=== PATIENT | female | born 1930 | race Caucasian/White ===

== ENCOUNTER 2016-11-09 16:00 | Inpatient (IN) | payer MEDICARE, OTHER ==
[2016-11-13 07:03] LABS: HCT 27.5 % (37.0-47.0); HGB 8.8 g/dl (12.5-16.0); MCH 31.7 pg (25.0-31.0); MCV 98.9 fL (78.0-100.0); RBC 2.78 M/uL (4.20-5.40); RDW 14.6 % (11.5-14.0); WBC 8.5 K/uL (4.0-10.5)
[2016-11-13 07:27] LABS: ALBUMIN 3.4 g/dL (3.4-4.8); BILIRUBIN - TOTAL 0.6 mg/dL (0.1-1.0); GLOBULIN (CALCULATION) 2.8 g/dL (2.2-4.2); POTASSIUM 3.9 mmol/L (3.5-5.1); TOTAL PROTEIN 6.2 g/dL (6.4-8.3)
[2016-11-13 07:41] LABS: CKMB 4.74 ng/mL (0.97-4.94); TROPONIN T < 0.010 ng/mL
--- NOTE | 2016-11-13 07:44 | NUR ---
615 AM PT CALLED OUT STATED SHE WAS NAUSEATED. CALL TO DR. RODRIGUEZ FOR HI UPON ARRIVAL TO PT ROOM PT STATES SHE IS HAVING CHEST DISCOMFORT. STATEMENTS VAGUE SAYS IT MIGHT BE HERE TRIPLE LUMEN IN HER NECK. RUBBING UPPER CHEST - WHEN ASKED TO GIVEN DETAILS STATES HEAVINESS. PER RAPID RESPONSE STAT EKG OBTAINED. LAB WORK ORDERED TO INCLUDE CARDIAC ENYZMES. VITALS MONITORED THROUGHOUT PROCESS 117/63, HEART RATE 88-94 SAT 93-97%, RESPIRATIONS 16-18. EKG FAXED TO DR RODRIGUEZ WITH COPY OF PREVIOUS EXAM FOR COMPARISON. DR. RODRIGUEZ REPORTS NO SIGNIFICANT CHANGES. CONTINUE TO MONITOR.
--- NOTE | 2016-11-20 11:27 | NUR ---
PT. INVITED TO CARE TEAM MTG. HER DAUGHTER MYRA HARP WAS ON A CONFERENCE CALL. PER MYRA PT. WILL HAVE 22/04 CAREGIVERS WHEN SHE D/C HOME. PT. WILL HAVE [facility] FOR PT/OT AND NURSING ASSESSMENT. ADVISED PT. AND DAUGHTER WE WOULD MEET AGAIN NEXT SATURDAY.
--- NOTE | 2016-11-20 12:18 | NUR ---
DEMETRIUS REMOVED FROM KNEE INCISION. PT JERKING LEG STATING "I NEED A DOUBLE DOSE OF PAIN AND CRAZY PILLS" DRESSING COVERING INCISION. POLAR PACK IN USE
--- NOTE | 2016-11-26 05:03 | NUR ---
PATIENT UP TO RESTROOM THIS TIME, COMPLAINS OF VAGUE CHEST DISCOMFORT. VITALS OBTAINED BP 172/77 HEART RATE 83, RESP 16, SAT 97. TEMP 97.1. RESTING EYES NO SIGNS OF DISTRESS OR DISCOMFORT. CLOSED DURING VITALS. WHEN AGAIN QUESTIONED ABOUT CHEST PAIN PATIENT PT DID NOT RESPOND TO QUESTIONS, REPEATED TIMES 3, PT THEN BEGAN PANTING BREATHING AND STATES IT FEELS LIKE IT IS SWELLED UP. AM BP MEDS OF NORVASC 2.5 AND LOSARTAN 25MG GIVEN AT THIS TIME WITH MYLANTA AND PERCOCET 1 TAB FOR KNEE PAIN.
--- NOTE | 2016-11-27 16:53 | NUR ---
TC CONFERENCE WITH PT. DAUGHTER, MYRA HARP. ADVISED MYRA THAT PT. WOULD BE DISCHARDING ON 11/30/16. PT. REQUESTS [facility] FOR PT/OT AND NURSING ASSESSMENT.
[2016-11-28 04:50] LABS: MCH 31.9 pg (25.0-31.0); MCHC 32.3 g/dL (32.0-36.0); MPV 9.8 fL (6.0-9.5); RBC 3.13 M/uL (4.20-5.40); RDW 14.3 % (11.5-14.0); WBC 7.3 K/uL (4.0-10.5)
--- NOTE | 2016-11-28 14:01 | NUR ---
DAUGHTER APPROACHED NURSE IN THE HALLWAY AND ASKED ABOUT A LIST OF DISCHARGE MEDS SO SHE CAN FILL THE PATIENT'S "PILL BOX". THE NURSE EXPLAINED THAT A FULL LIST OF D/C MEDS WOULD BE PROVIDED ON SATURDAY SHE STATED "THAT'S TOO LATE". THE NURSE EXPLAINED TO THE DAUGHTER THAT MANY THINGS COULD CHANGE BETWEEN NOW AND SATURDAY AND THAT THE NURSE DID NOT FEEL COMFORTABLE GIVING A LIST NOW BECAUSE IT WOULD NOT BE COMPLETE SHE STATED "WELL I DON'T KNOW WHAT COULD CHANGE" AND SHE KEPT REPEATING THAT PHRASE OVER AND OVER THE NURSE TRIED TO EXPLAIN THAT IT WAS POSSIBLE FOR MANY THINGS TO CHANGE. THE NURSE THEN TOLD THE DAUGHTER THAT THE ORDERS COULD POSSIBLY BE READY ON SATURDAY AND SHE COULD HAVE IT SHE STATED "THAT'S TOO LATE" AND WALKED AWAY FROM THE NURSE. THIS NURSE EXPLAINED THE SITUATION TO TREVOR ALLEN.
--- NOTE | 2016-11-30 11:13 | NUR ---
PT. D/C HOME THIS DATE. PT. TO HAVE 22/04 CAREGIVERS. PT. HAS A ROLLING WALKER AND 3 IN 1. PT. REQUESTED [facility] FOR PT/OT AND NURSING ASSESSMENT.PT. XARELTO THERAPY IS COMPLETE. D/C NOTICE AND QUESTIONNAIRE GIVEN.
[2016-11-30] MEDS ORDERED: COLACE100 MG PO (13:37)
[2016-11-30] MEDS ORDERED: ACETAMINOPHEN325 MG PO (13:37)
[2016-11-30] MEDS ORDERED: BENADRYL25 MG PO (13:38)
[2016-11-30] MEDS ORDERED: FEOSOL325 MG PO (13:38)
[2016-11-30] MEDS ORDERED: ILOTYCIN1 GM OU (13:39)
[2016-11-30] MEDS ORDERED: XALATAN2.5 ML OU (13:39)
[2016-11-30] MEDS ORDERED: REQUIP2 MG PO (13:40)
[2016-11-30] MEDS ORDERED: BUMEX1 MG PO (13:40)
[2016-11-30] MEDS ORDERED: REQUIP1 MG PO (13:40)
[2016-11-30] MEDS ORDERED: NORVASC2.5 MG PO (13:41)
[2016-11-30] MEDS ORDERED: COZAAR 25MG TAB25 MG PO (13:41)
[2016-11-30] MEDS ORDERED: ZOVIRAX5 GM TOP (13:43)
[2016-11-30] MEDS ORDERED: PAXIL10 MG PO (13:44)
[2016-11-30] MEDS ORDERED: LIPITOR40 MG PO (13:44)
[2016-11-30] MEDS ORDERED: PLAVIX75 MG PO (13:44)
[2016-11-30] MEDS ORDERED: PROTONIX 40MG T40 MG PO (13:44)
[2016-11-30] MEDS ORDERED: CLARITIN10 MG PO (13:45)
[2016-11-30] MEDS ORDERED: K-DUR20 MEQ PO (13:45)
== END 2016-11-30 11:57 | disposition home health service (06) | DRG 560 ==
LOC: FSNU 16:00
PROVIDERS: Nurse Practitioner Adult Health; ADMIT Internal Medicine
DX: Z47.1 Aftercare following joint replacement surgery (principal); I50.42 Chronic combined systolic (congestive) and diastolic (congestive) heart failure; I11.0 Hypertensive heart disease with heart failure; I27.2 Other secondary pulmonary hypertension; D62 Acute posthemorrhagic anemia; Z96.651 Presence of right artificial knee joint; R00.1 Bradycardia, unspecified; I25.10 Atherosclerotic heart disease of native coronary artery without angina pectoris; F41.9 Anxiety disorder, unspecified; R07.9 Chest pain, unspecified; I45.10 Unspecified right bundle-branch block
CPT/HCPCS: 36415; 80053; 82550; 82553; 84484; 93005; 97110; 97116; 97162; 97165; 97530; 97530-GP; 97535; 97537; J2916

== ENCOUNTER 2021-03-29 20:12 | Day surgery (SDCO) | payer MEDICARE, OTHER ==
[~2021-03-29] VITALS: Ht 162.6 cm; Wt 60.4 kg
[~2021-03-29 20:12] MED LIST: ACETAMINOPHEN325 MG PO; ALLOPURINOL300 MG PO; BACTRIM DS TAB1 EACH PO; BENADRYL25 MG PO; BETIMOL5 ML EYEBOTH; BUMEX1 MG PO; CLARITIN10 MG PO; COLACE100 MG PO; COQ-10100 MG PO; COZAAR 25MG TAB25 MG PO; CRESTOR10 MG PO; D3-200050 MCG PO; FEOSOL325 MG PO; FOLIC ACID1 MG PO; ICAR-C PLUS TA1 EACH PO; ILOTYCIN1 GM OU; K-DUR20 MEQ PO; LIPITOR40 MG PO; LOPRESSOR25 MG PO; MAG-OXIDE 400M400 MG PO; MEDROL 4MG DOSEP4 MG PO; NORCO 5-325 TA1 EACH PO; NORVASC2.5 MG PO; PAXIL10 MG PO; PEPCID AC20 MG PO; PLAVIX75 MG PO; PROTONIX 40MG T40 MG PO; REQUIP1 MG PO; TIMOPTIC 0.5%1 EACH AU; TRAMADOL HCL50 MG PO; XALATAN2.5 ML OU; ZANTAC150 MG PO; ZOFRAN8 MG PO; ZOVIRAX5 GM TOP; ZYRTEC10 MG PO
[2021-03-29 21:52] LABS: BASOPHIL 0.8 % (0-2); EOSINOPHIL 3.5 % (0-7); HCT 22.6 % (37.0-47.0); LYMPHOCYTE 24.3 % (15-48); MCH 32.1 pg (25.0-31.0); MCV 103.7 fL (78.0-100.0); MONOCYTE 8.3 % (0-12); MPV 10.7 fL (6.0-9.5); NEUTROPHIL 62.6 % (41-80); NRBC 0; PLT 400 K/uL (150-400); RBC 2.18 M/uL (4.20-5.40); RDW 17.1 % (11.5-14.0); WBC 6.4 K/uL (4.0-10.5)
[2021-03-29 22:04] LABS: ALBUMIN 3.1 g/dL (3.4-5.0); BILIRUBIN - TOTAL 0.2 mg/dL (0.2-1.0); BUN/CREAT RATIO (CALC) 21.3 RATIO; CREATININE 1.22 mg/dL (0.51-0.95); GLOBULIN (CALCULATION) 3.9 g/dL
[2021-03-29 22:26] LABS: INR 1.09 (0.9-1.2); PROTHROMBIN TIME 13.4 SECONDS (11.4-13.6); PTT 27.5 SECONDS (22.2-34.7)
[2021-03-29 22:27] LABS: D-DIMER 1.01 ug/mLFEU (0.00-0.41)
[2021-03-29 23:10] LABS: RETICULOCYTE COUNT 2.1 % (1.0-2.0)
[2021-03-29 23:37] LABS: IRON % SATURATION 13.1 %SAT (20-50)
[2021-03-29 23:55] LABS: FOLIC ACID (SERUM) 11.6 ng/mL (8.6-58.9)
[2021-03-30 01:27] LABS: MAGNESIUM 2.5 mg/dL (1.8-2.4); PHOSPHORUS 3.9 mg/dL (2.6-4.7)
[2021-03-30 10:21] LABS: BASOPHIL 1.2 % (0-2); EOSINOPHIL 3.6 % (0-7); HCT 34.2 % (37.0-47.0); LYMPHOCYTE 17.8 % (15-48); MONOCYTE 8.2 % (0-12); MPV 10.7 fL (6.0-9.5); NEUTROPHIL 68.8 % (41-80); NRBC 0; PLT 350 K/uL (150-400); RBC 3.64 M/uL (4.20-5.40); RDW 18.6 % (11.5-14.0); WBC 5.6 K/uL (4.0-10.5)
[2021-03-30 10:22] LABS: HGB 11.3 g/dl (12.5-16.0)
[2021-03-30 10:41] LABS: ALBUMIN 3.3 g/dL (3.4-5.0); BILIRUBIN - TOTAL 0.6 mg/dL (0.2-1.0); BUN/CREAT RATIO (CALC) 18.9 RATIO; CREATININE 1.06 mg/dL (0.51-0.95); GLOBULIN (CALCULATION) 3.6 g/dL; POTASSIUM 4.3 mmol/L (3.5-5.1); TOTAL PROTEIN 6.9 g/dL (6.4-8.2)
[2021-03-30 10:56] LABS: CKMB 2.1 ng/mL (0.0-3.6)
[2021-03-31 06:15] LABS: EOSINOPHIL 4.5 % (0-7); HCT 32.1 % (37.0-47.0); HGB 10.6 g/dl (12.5-16.0); LYMPHOCYTE 21.2 % (15-48); MCH 30.6 pg (25.0-31.0); MCV 92.8 fL (78.0-100.0); MONOCYTE 9.3 % (0-12); MPV 11.1 fL (6.0-9.5); NEUTROPHIL 63.4 % (41-80); NRBC 0; PLT 336 K/uL (150-400); RBC 3.46 M/uL (4.20-5.40); RDW 18.6 % (11.5-14.0); WBC 6.2 K/uL (4.0-10.5)
[2021-03-31 06:33] LABS: BUN/CREAT RATIO (CALC) 21.1 RATIO; CREATININE 1.14 mg/dL (0.51-0.95); POTASSIUM 4.3 mmol/L (3.5-5.1)
--- NOTE | 2021-03-31 12:05 | NUR ---
TC TO DAUGHTER MYRA [phone] AND PAYMA. BOTH ADVISED THAT THEY WANT THE HH THEIR MOTHER HAD THE LAST TIME SHE LEFT [place]. LOOKED THROUGH PT RECORD FOR THE HH. IT WAS [facility]. ADVISED DAUGHTER. SENT REFERRAL THROUGH [facility]. WELL FAXED TO JANEEN AT [facility]. PT. IS SCHEDULED TO D/C HOME ON 03/31/21.
== END 2021-03-31 13:17 | disposition home health service (06) ==
LOC: FER 20:12 → FMS 03-30 00:29
PROVIDERS: Emergency Medicine; Nurse Practitioner; ADMIT Internal Medicine
DX: I13.0 Hypertensive heart and chronic kidney disease with heart failure and stage 1 through stage 4 chronic kidney disease, or unspecified chronic kidney disease (principal); I50.43 Acute on chronic combined systolic (congestive) and diastolic (congestive) heart failure; N18.30 Chronic kidney disease, stage 3 unspecified; M48.55XA Collapsed vertebra, not elsewhere classified, thoracolumbar region, initial encounter for fracture; R07.89 Other chest pain; R04.0 Epistaxis; Z88.0 Allergy status to penicillin; Z88.5 Allergy status to narcotic agent; I25.2 Old myocardial infarction; Z95.5 Presence of coronary angioplasty implant and graft; K21.9 Gastro-esophageal reflux disease without esophagitis; Z79.899 Other long term (current) drug therapy; Z96.653 Presence of artificial knee joint, bilateral; Z90.49 Acquired absence of other specified parts of digestive tract; Z20.822 Contact with and (suspected) exposure to COVID-19; D50.9 Iron deficiency anemia, unspecified; I45.10 Unspecified right bundle-branch block; E78.5 Hyperlipidemia, unspecified; F41.9 Anxiety disorder, unspecified; I25.10 Atherosclerotic heart disease of native coronary artery without angina pectoris; R13.10 Dysphagia, unspecified; I27.20 Pulmonary hypertension, unspecified; I08.3 Combined rheumatic disorders of mitral, aortic and tricuspid valves
CPT/HCPCS: 36415; 36430; 70490; 71250; 80048; 80053; 82550; 82553; 82607; 82746; 83540; 83550; 83735; 83880; 84100; 84484; 85025; 85379; 85610; 85730; 86850; 86900; 86901; 86922; 87040; 93005; 94760; 97162; 97166; 97530; 97530-GP; 97535; G0378; J1885; J2916; P9016; U0002

== ENCOUNTER 2021-09-08 13:30 | Emergency (ER) | payer MEDICARE, OTHER ==
[~2021-09-08] VITALS: Ht 162.6 cm; Wt 54.4 kg
[2021-09-08 14:13] LABS: BASOPHIL 1.2 % (0-2); HCT 29.3 % (37.0-47.0); HGB 9.5 g/dl (12.5-16.0); LYMPHOCYTE 30.2 % (15-48); MCH 37.7 pg (25.0-31.0); MCHC 32.4 g/dL (32.0-36.0); MCV 116.3 fL (78.0-100.0); MPV 11.1 fL (6.0-9.5); NEUTROPHIL 60.1 % (41-80); NRBC 0; PLT 378 K/uL (150-400); RBC 2.52 M/uL (4.20-5.40); RDW 15.7 % (11.5-14.0)
[2021-09-08 14:20] LABS: BILIRUBIN NEGATIVE (NEGATIVE); BLOOD TRACE-INTACT Ery/uL (NEGATIVE); CLARITY CLEAR (CLEAR); COLOR YELLOW (YELLOW); GLUCOSE (U) NORMAL (NORMAL); LEUKOCYTES 1+ Leu/uL (NEGATIVE); NITRITE NEGATIVE (NEGATIVE); PROTEIN NEGATIVE (NEGATIVE); SPECIFIC GRAVITY 1.015 (1.001-1.030); UROBILINOGEN 0.2 mg/dL (0.2-1.0)
[2021-09-08 14:21] LABS: INR 1.1 (0.9-1.2); PROTHROMBIN TIME 13.6 SECONDS (11.8-13.4); PTT 27.6 SECONDS (24.4-34.7)
[2021-09-08 14:28] LABS: ALBUMIN 3.6 g/dL (3.4-5.0); BILIRUBIN - TOTAL 0.3 mg/dL (0.2-1.0); BUN/CREAT RATIO (CALC) 28.6 RATIO; CREATININE 1.05 mg/dL (0.51-0.95); GLOBULIN (CALCULATION) 3.8 g/dL; POTASSIUM 3.9 mmol/L (3.5-5.1); TOTAL PROTEIN 7.4 g/dL (6.4-8.2)
[2021-09-08 14:33] LABS: PRO-BNP 466 pg/mL (<450)
[2021-09-08 14:46] LABS: BACTERIA TRACE; URINARY RBC RARE; URINARY WBC 20-50
[2021-09-08] MEDS ORDERED: MACROBID100 MG PO (15:29)
[2021-09-08] MEDS ORDERED: PYRIDIUM200 MG PO (15:52)
== END 2021-09-08 16:20 | disposition home or self-care (01) ==
LOC: FER 13:30
PROVIDERS: Emergency Medicine
DX: N39.0 Urinary tract infection, site not specified (principal); I50.9 Heart failure, unspecified; Z20.822 Contact with and (suspected) exposure to COVID-19; Z88.0 Allergy status to penicillin; Z91.09 Other allergy status, other than to drugs and biological substances
CPT/HCPCS: 36415; 71046; 80053; 81001; 83880; 84484; 85025; 85610; 85730; 87077; 87088; 87186; 93005; U0002

== ENCOUNTER 2022-01-07 21:01 | Emergency (ER) | payer MEDICARE, OTHER ==
[~2022-01-07 21:01] MED LIST changes: +MACROBID100 MG PO; +PYRIDIUM200 MG PO
[2022-01-07 22:33] LABS: BASOPHIL 0.9 % (0-2); EOSINOPHIL 3.8 % (0-7); HCT 25.8 % (37.0-47.0); HGB 8.2 g/dl (12.5-16.0); LYMPHOCYTE 24.1 % (15-48); MCH 35.2 pg (25.0-31.0); MCHC 31.8 g/dL (32.0-36.0); MCV 110.7 fL (78.0-100.0); MONOCYTE 8.4 % (0-12); NEUTROPHIL 62.5 % (41-80); NRBC 0; PLT 395 K/uL (150-400); RBC 2.33 M/uL (4.20-5.40); RDW 16.2 % (11.5-14.0); WBC 6.5 K/uL (4.0-10.5)
[2022-01-07 22:55] LABS: ALBUMIN 3.4 g/dL (3.4-5.0); BILIRUBIN - TOTAL 0.3 mg/dL (0.2-1.0); CREATININE 1.09 mg/dL (0.51-0.95); GLOBULIN (CALCULATION) 3.9 g/dL; MAGNESIUM 2.6 mg/dL (1.8-2.4); TOTAL PROTEIN 7.3 g/dL (6.4-8.2)
[2022-01-07 23:06] LABS: CORONAVIRUS 2019 SARS-COV-2 NEGATIVE (NEGATIVE); INFLUENZA A NAA NEGATIVE (NEGATIVE)
[2022-01-07 23:23] LABS: INR 1.1 (0.9-1.2); PROTHROMBIN TIME 13.6 SECONDS (11.8-13.4); PTT 30.4 SECONDS (24.4-34.7)
== END 2022-01-08 00:49 | disposition home or self-care (01) ==
LOC: FER 21:01
PROVIDERS: Internal Medicine
DX: J06.9 Acute upper respiratory infection, unspecified (principal); B34.9 Viral infection, unspecified; I50.9 Heart failure, unspecified; D64.9 Anemia, unspecified; Z88.0 Allergy status to penicillin; Z20.822 Contact with and (suspected) exposure to COVID-19; Z28.311 Partially vaccinated for COVID-19
CPT/HCPCS: 36415; 71045; 71250; 80053; 83735; 83880; 84145; 84484; 85025; 85610; 85730; 93005; J1650; U0002

== ENCOUNTER 2022-01-27 18:33 | Emergency (ER) | payer MEDICARE, OTHER ==
[2022-01-27 20:22] LABS: BASOPHIL 0.8 % (0-2); EOSINOPHIL 3.6 % (0-7); HCT 28.2 % (37.0-47.0); HGB 8.8 g/dl (12.5-16.0); LYMPHOCYTE 30.3 % (15-48); MCHC 31.2 g/dL (32.0-36.0); MCV 108.9 fL (78.0-100.0); MONOCYTE 8.5 % (0-12); MPV 10.7 fL (6.0-9.5); NEUTROPHIL 56.3 % (41-80); NRBC 0; PLT 456 K/uL (150-400); RBC 2.59 M/uL (4.20-5.40); WBC 6.4 K/uL (4.0-10.5)
[2022-01-27 20:44] LABS: ALBUMIN 3.3 g/dL (3.4-5.0); BILIRUBIN - TOTAL 0.3 mg/dL (0.2-1.0); BUN/CREAT RATIO (CALC) 18.5 RATIO; CREATININE 1.19 mg/dL (0.51-0.95); POTASSIUM 4.2 mmol/L (3.5-5.1); TOTAL PROTEIN 7.3 g/dL (6.4-8.2)
[2022-01-27 21:33] LABS: BILIRUBIN NEGATIVE (NEGATIVE); BLOOD TRACE-INTACT Ery/uL (NEGATIVE); CLARITY CLEAR (CLEAR); COLOR YELLOW (YELLOW); GLUCOSE (U) NORMAL (NORMAL); LEUKOCYTES 2+ Leu/uL (NEGATIVE); NITRITE NEGATIVE (NEGATIVE); PROTEIN NEGATIVE (NEGATIVE); SPECIFIC GRAVITY <=1.005 (1.001-1.030); UROBILINOGEN 0.2 mg/dL (0.2-1.0); pH 6.5 (5.0-9.0)
[2022-01-27 21:39] LABS: AMORPHOUS URATES CRYSTALS TRACE; BACTERIA 1+; SQUAMOUS EPITHELIAL CELLS RARE; URINARY RBC RARE
[2022-01-27] MEDS ORDERED: FLONASE ALLER15.8 ML (21:55)
[2022-01-27] MEDS ORDERED: ZYRTEC10 MG PO (21:55)
[2022-01-27] MEDS ORDERED: CEFDINIR300 MG PO (21:55)
== END 2022-01-27 22:55 | disposition home or self-care (01) ==
LOC: FER 18:33
PROVIDERS: Internal Medicine
DX: N39.0 Urinary tract infection, site not specified (principal); N18.30 Chronic kidney disease, stage 3 unspecified; R09.81 Nasal congestion; D63.1 Anemia in chronic kidney disease; Z88.0 Allergy status to penicillin
CPT/HCPCS: 36415; 71250; 80053; 81001; 83690; 84484; 85025; 87088; 93005; J0696

== ENCOUNTER 2022-03-03 18:30 | Emergency (ER) | payer MEDICARE, OTHER ==
[~2022-03-03 18:30] MED LIST changes: +CEFDINIR300 MG PO; +FLONASE ALLER15.8 ML
[2022-03-03 20:15] LABS: EOSINOPHIL 3.5 % (0-7); HCT 25.6 % (37.0-47.0); LYMPHOCYTE 20.6 % (15-48); MCH 32.4 pg (25.0-31.0); MCHC 31.3 g/dL (32.0-36.0); MCV 103.6 fL (78.0-100.0); MONOCYTE 6.6 % (0-12); MPV 10.9 fL (6.0-9.5); NEUTROPHIL 67.6 % (41-80); NRBC 0; PLT 442 K/uL (150-400); RBC 2.47 M/uL (4.20-5.40); RDW 17.3 % (11.5-14.0); WBC 8.2 K/uL (4.0-10.5)
[2022-03-03 20:31] LABS: CORONAVIRUS 2019 SARS-COV-2 NEGATIVE (NEGATIVE); INFLUENZA A NAA NEGATIVE (NEGATIVE)
[2022-03-03 20:39] LABS: ALBUMIN 3.1 g/dL (3.4-5.0); BILIRUBIN - TOTAL 0.2 mg/dL (0.2-1.0); BUN/CREAT RATIO (CALC) 19.4 RATIO; CREATININE 1.29 mg/dL (0.51-0.95); TOTAL PROTEIN 7.1 g/dL (6.4-8.2)
[2022-03-04] MEDS ORDERED: ZPAK PO (04:12)
== END 2022-03-04 06:05 | disposition home or self-care (01) ==
LOC: FER 18:30
PROVIDERS: Emergency Medicine
DX: J06.9 Acute upper respiratory infection, unspecified (principal); R06.00 Dyspnea, unspecified; I13.0 Hypertensive heart and chronic kidney disease with heart failure and stage 1 through stage 4 chronic kidney disease, or unspecified chronic kidney disease; N18.30 Chronic kidney disease, stage 3 unspecified; I50.9 Heart failure, unspecified; D63.1 Anemia in chronic kidney disease; Z88.0 Allergy status to penicillin; Z88.6 Allergy status to analgesic agent; Z91.09 Other allergy status, other than to drugs and biological substances; Z20.822 Contact with and (suspected) exposure to COVID-19
CPT/HCPCS: 36415; 36600; 71045; 71275; 80053; 82803; 83880; 84145; 84484; 85025; 85379; 86850; 86900; 86901; 86922; 93005; J1940; J7050; P9016; Q9967; U0002

== ENCOUNTER 2022-04-20 09:51 | Emergency (ER) | payer MEDICARE, OTHER ==
[~2022-04-20 09:51] MED LIST changes: +ZPAK PO
[2022-04-20 11:36] LABS: BASOPHIL 0.8 % (0-2); EOSINOPHIL 5.8 % (0-7); HCT 30.1 % (37.0-47.0); HGB 9.5 g/dl (12.5-16.0); LYMPHOCYTE 20.7 % (15-48); MCH 34.5 pg (25.0-31.0); MCHC 31.6 g/dL (32.0-36.0); MCV 109.5 fL (78.0-100.0); MONOCYTE 7.7 % (0-12); MPV 11.3 fL (6.0-9.5); NEUTROPHIL 64.6 % (41-80); NRBC 0; PLT 358 K/uL (150-400); RBC 2.75 M/uL (4.20-5.40); RDW 24.2 % (11.5-14.0); WBC 5.2 K/uL (4.0-10.5)
[2022-04-20 11:39] LABS: INR 1.05 (0.9-1.2); PROTHROMBIN TIME 13.4 SECONDS (11.9-13.9); PTT 25.4 SECONDS (24.9-34.6)
[2022-04-20 11:59] LABS: IRON % SATURATION 42.3 %SAT (20-50)
[2022-04-20 12:24] LABS: MAGNESIUM 2.5 mg/dL (1.8-2.4)
[2022-04-20 12:25] LABS: C-REACTIVE PROTEIN <0.20 mg/dL (<=0.90)
[2022-04-20 12:54] LABS: BILIRUBIN NEGATIVE (NEGATIVE); BLOOD NEGATIVE Ery/uL (NEGATIVE); CLARITY CLEAR (CLEAR); COLOR YELLOW (YELLOW); GLUCOSE (U) NORMAL (NORMAL); LEUKOCYTES 1+ Leu/uL (NEGATIVE); NITRITE NEGATIVE (NEGATIVE); PROTEIN NEGATIVE (NEGATIVE); UROBILINOGEN 0.2 mg/dL (0.2-1.0)
[2022-04-20 13:14] LABS: FOLIC ACID (SERUM) 5.2 ng/mL (8.6-58.9)
[2022-04-20 13:16] LABS: BACTERIA TRACE; URINARY RBC RARE
[2022-04-20 13:53] LABS: ALBUMIN 3.5 g/dL (3.4-5.0); BILIRUBIN - TOTAL 0.2 mg/dL (0.2-1.0); BUN/CREAT RATIO (CALC) 16.9 RATIO; CREATININE 1.54 mg/dL (0.51-0.95); GLOBULIN (CALCULATION) 3.6 g/dL; TOTAL PROTEIN 7.1 g/dL (6.4-8.2)
[2022-04-20] MEDS ORDERED: FOLIC ACID1 M1 PO (16:22)
== END 2022-04-20 16:50 | disposition home or self-care (01) ==
LOC: FER 09:51
PROVIDERS: Emergency Medicine
DX: R53.1 Weakness (principal); E53.8 Deficiency of other specified B group vitamins; Z88.0 Allergy status to penicillin
CPT/HCPCS: 36415; 71045; 80053; 81001; 82150; 82607; 82728; 82746; 83540; 83550; 83605; 83690; 83735; 83880; 84145; 84439; 84443; 85025; 85610; 85730; 86140; 93005